=== PATIENT | female | born 2000 | race Native Hawaiian/Other Pacific Islander ===

== ENCOUNTER 2018-12-17 20:30 | Inpatient (IN) | payer OTHER ==
[2018-12-17] VITALS (19 sets, daily range): BP systolic 89–129; BP diastolic 51–86
[~2018-12-17] VITALS: Ht 175.3 cm; Wt 90.7 kg
[2018-12-17] MEDS ORDERED: PRENTAB9 PO (20:49)
[2018-12-17] MEDS ORDERED: PENICILLIN G POTASSIUM 5 MU VIAL As Ordered ONE (21:25)
[2018-12-17] MEDS ORDERED: LACTATED RINGER'S 1000 ML IV STA (21:44)
[2018-12-17] MEDS ORDERED: LR 1,000 ML IV SCH (21:44)
[2018-12-17] MEDS ORDERED: PENICILLIN G POTASSIUM IV 5 MU in D5W MINI-BAG PLUS 100 ML IV STA (21:44)
[2018-12-17 21:47] LABS: HEMATOCRIT 34.2 % (36.0-47.0); HEMOGLOBIN 10.6 g/dl (12.0-15.5); MEAN CORPUSCULAR HEMOGLOBIN 23.8 pg (27.0-33.0); MEAN CORPUSCULAR VOLUME 76.7 fl (80.0-96.0); PLATELET COUNT, AUTOMATED 237 10^3/uL (150-450); RED BLOOD COUNT 4.46 10^6/uL (4.00-5.40); WHITE BLOOD COUNT 16.4 10^3/uL (4.0-10.0)
[2018-12-17] MEDS ORDERED: FENTANYL 2MCG/ML ROPIVACAINE 0.2% IN 0.9% NACL 100ML IVBAG As Ordered ONE (22:06)
--- NOTE | 2018-12-17 22:17 | HPEPDOC ---
Obstetrical History & Physical General Date of Admission Dec 17, 2018 at 21:06 History of Present Illness 18 y/o at 39+1 with painful reg ctx's. No LOF/VB. Pos FM. Preg uncomplicated per pt although there is no chart to review. Last note reviewed by MAJ Jorgensen on FEB and it said uncomplicated preg. I was in the clinic and looked everywhere for the chart, but only had time to look at labs and US on the EMR before I was called to another delivery. Chief Complaint: Contractions, term Care Care: Limited Care (presented at 15-16 wks) Dating Final EDC by: 2nd trimester (US) (17 wk scan determined NELSY) Past Medical History Past Obstetrical History : Past Obstetrical History: [employer] History: No pertinent history Past Medical History Medical History denies Surgical History: Denies/None Family History Significant Family History: No pertinent family hx Social History Marital Status: Single (FOB not involved) Psychosocial History: No pertinent psych hx * Smoker: non-smoker Alcohol: Denies Drugs: denies Abuse Violence Screening Have you been hit/kicked/slapp: No Have you been sexually assault: No Allergies Coded Allergies: No Known Allergies (Unverified , 12/17/18) Medications Scheduled Multivitamins/ ( 27-0.8 mg) 1 Tab Tab, 1 TAB PO DAILY Physical Examination Physical Examination GENERAL: Alert and oriented times three. ABDOMEN: Gravid and non-tender to touch. FETUS: Is vertex (VTX) by sterile vaginal examination (SVE) per RN, check at ~2100 was 4/60/-2 EXTREMITIES: No edema. Laboratory Data 24H LABS Laboratory Tests 2 12/17/18 21:20: Nucleated Red Blood Cells % (auto) 0.0 CBC/BMP Laboratory Tests 12/17/18 21:20 Red Blood Count 4.46, Mean Corpuscular Volume 76.7 L, Mean Corpuscular Hemoglobin 23.8 L, Mean Corpuscular Hemoglobin Concent 31.0 L, Red Cell Distribution Width 14.5 Urine Culture: Contaminated Pertinent Laboratoy Data RBC Antibody Screen: Negative HIV: Negative Hepatitis B: Negative Hepatitis C: Unknown Rapid Plasma Reagin: Nonreactive Rubella: Immune Varicella: Immune Chlamydia/Gonorrhea: Negative Group B Streptococcus: Positive Quad Screen Test: Unknown Cystic Fibrosis: Unknown Glucose Tolerance Test: 154 (nl 3 hr GTT) Anatomy Ultrasound Placenta Location: Posterior Normal Anatomy: Yes Placenta Previa: No Assessment Variability: Moderate Accelerations: Positive Decelerations: Variable (intermittent) Heart Patterns: Tachycardia (intermittent) Tocometer Contractions: Yes Frequency: regular Duration: greater than 60 seconds Strength: palpated as strong Assessment/Plan Assessment Active labor. Desires an epidural. Plan Admit and orient. Press Loader and consent. Diet: clears Group B Streptococcus (GBS) pos, PCN 5/2.5 Labs and intravenous (IV) per unit protocol Lactated Ringers (LR): Bolus 1000 mL, then at 125 mL/hr. Anticipate normal spontaneous delivery () C-S as appropriate. Unknown TDAP and Flu shot status due to no chart Standard labs, I have all of them except blood type, the T&S is pending Recheck after second dose PCN is in, ~0200 Sessions SESSIONS,ROZINA Gaming MD Dec 17, 2018 22:17
[2018-12-17] MEDS ORDERED: EPIDURAL COMMENT XX SCH (23:00)
[2018-12-17] MEDS ORDERED: ePHEDrine SULFATE 25 MG/5 ML(5MG/ML) SYRINGE IV PRN (23:00)
[2018-12-17] MEDS ORDERED: FENTANYL/ROPIVACAINE/NACL BAG 100 ML EPIDURAL SCH (23:00)
[2018-12-17] MEDS ORDERED: NALOXONE INJ 0.4 MG/1 ML VIAL (J2310) IV PRN (23:00)
[2018-12-17] MEDS ORDERED: EPIDURAL/PCA KEYS XX PRN (23:00)
[2018-12-17] MEDS ORDERED: diphenhydrAMINE INJ 50MG/ML VIAL (J1200) IV PRN (23:00)
[2018-12-17] MEDS ORDERED: LACTATED RINGER'S 1000 ML IV PRN (23:00)
[2018-12-17] MEDS ORDERED: REFRIGERATOR IV KEYS XX PRN (23:00)
[2018-12-17] MEDS ORDERED: ONDANSETRON 4MG/2ML VIAL (J2405) IV PRN (23:00)
[2018-12-18] MEDS ORDERED: PENICILLIN G POTASSIUM IV 2.5 MU in APPROPRIATE DILUENT 1 EA IV SCH (01:45)
[2018-12-18] MEDS ORDERED: OXYTOCIN 30 UNITS IN 0.9% NaCl 500ML IV BAG (J2590) As Ordered ONE (01:51)
[2018-12-18] MEDS ORDERED: miSOPROStol 200 MCG TAB (S0191) PR STA (02:07)
[2018-12-18] MEDS ORDERED: AMPICILLIN SOD/SULBACTAM SOD 3 GM in D5W MINI-BAG PLUS 100 ML IV SCH ×2 (02:15→03:00)
[2018-12-18 02:21] LABS: CORD GAS ABE V -9.7; CORD GAS O2 SAT V 80.5 %; CORD GAS PCO2 V 52.2 mmHg; CORD GAS PH V 7.178 UNITS; CORD GAS PO2 V 46.3 mmHg; CORD GAS SBC V 16.5 MEQ/L; CORD GAS TCO2 V 20.6 MEQ/L
[2018-12-18 02:26] LABS: CORD GAS ABE A -11.9; CORD GAS HCO3 A 22.3 MEQ/L; CORD GAS O2 SAT A 20.6 %; CORD GAS PCO2 A 101.7 mmHg; CORD GAS PO2 A 16.6 mmHg; CORD GAS SBC A 13.8 MEQ/L; CORD GAS TCO2 A 25.4 MEQ/L
[2018-12-18 02:30] LABS: CORD GAS PH A 6.958 UNITS
[2018-12-18] MEDS ORDERED: OXYTOCIN DRIP 30 UNITS in APPROPRIATE DILUENT 1 EA IV SCH (02:36)
[2018-12-18] MEDS ORDERED: DIBUCAINE 1% OINTMENT 30GM TOP PRN (02:45)
[2018-12-18] MEDS ORDERED: METOCLOPRAMIDE INJ 10MG/2ML VIAL (J2765) IV PRN (02:45)
[2018-12-18] MEDS ORDERED: IBUPROFEN 800 MG TAB PO PRN (02:45)
[2018-12-18] MEDS ORDERED: ACETAMINOPHEN TAB 650MG DOSE (2X325MG) PO PRN (02:45)
[2018-12-18] MEDS ORDERED: MEASLES,MUMPS,RUBELLA VACCINE INJ (MMR-II) (90707) SC SCH (02:45)
[2018-12-18] MEDS ORDERED: RHOGAM 300 MCG (1500 IU) INJ (J2790) IM SCH (02:45)
--- NOTE | 2018-12-18 02:59 | DNPDOC ---
[facility] Delivery Note Delivery Note DATE OF DELIVERY: [id number] PREDELIVERY DIAGNOSIS: 39 1/7 weeks gestation and labor. POST DELIVERY DIAGNOSIS: Delivered. PROCEDURE: Outlet vacuum CPC: Dr Sims ANESTHESIA: epidural ESTIMATED BLOOD LOSS: 500 mL. FINDINGS: 8 pound 5 ounce male , Score 5/9, nuchal cord times 1, loose, compound right hand DELIVERY SUMMARY: Called to room emergently with SBAR of prolonged decel and SROM with RN cx check. Baby at +4/JOSH. Pushed well with periods of heart rate returned to normal, but more in the 60-90's then otherwise. Verbal consent for epis/vacuum delivery with quick disc of larger lacs to tissue and possible bruising/lacs to head. NICU doc called, on his way. ML epis performed w/o difficulty at beginning of push. Still not able to deliver with that set of ctx's. Kiwi vacuum placed mid sagitally 1-2 cm from post fontanelle and with next set of pushes/next ctx, del'd the head with one pull and no pop-offs. Vac removed easily and right ant shoulder del'd, compound right arm noted at this time. No delay of post shoulder. Cord C/C and baby to warmer, resuscitation team present, see their note. Cord gasses obtained from a very dried up and not engorged cord. With placenta delivery, second draw labelled as arterial was actually venous and there was about 5 min from first venous draw to second draw, questionable reliability/clinical value. First venous gas with pH 7.18 and BE - 9.7. Placenta with long trailing membranes and possible extra lobe?, examined to the fundus (tolerated amazingly well) and each of several passes had tissue/membranes present. Done until all confirmed removed, pitocin going 999, fundus firm. ML epis examined, no extension other than on the skin down to the anal verge. Rectal capsule and sphincter intact, confirmed with eventual rectal exam. Essential 2nd degr lac repaired with continuous 3-0 vicryl in standard fashion. Good cosmesis/hemostasis. 1000 mcg cytotec placed rectally for prophylaxis due to the retained placental fragments and EBL 500. Will receive 3 doses of Unasyn 3 gm IV for prophylaxis. Sessions MD SIMS,ROZINA Gaming MD Dec 18, 2018 02:59
[2018-12-18 07:14] VITALS: BP 97/58
[2018-12-18] MEDS: PRENATAL VITAMINS CHEWABLE TABLET PO SCH (08:43)
[2018-12-18] MEDS: DOCUSATE SODIUM 100 MG CAP PO SCH ×2 (08:43→21:38)
[2018-12-18] MEDS: AMPICILLIN SOD/SULBACTAM SOD 3 GM in D5W MINI-BAG PLUS 100 ML IV SCH ×3 (12:07→23:50)
--- NOTE | 2018-12-18 17:03 | IPN ---
DATE: 12/18/2018 This lady and her requested circumcision of their male . After discussing risks and benefits of circumcision, the medical nonmedical indications, penile block, and aftercare, expressed understanding penile, block aftercare, and bleeding. Signed and witnessed consent form. All questions were answered. A 20-minute discussion. We await clearance by the manager process.
[2018-12-18 18:00] VITALS: BP 110/66
[2018-12-19 05:48] VITALS: BP 112/64
--- NOTE | 2018-12-19 05:49 | NUR ---
PostpartumProgress Note Date of Service The patient was seen on 12/19/18. NOTE VAVD PPD1 Dorita reports feeling well, pain controlled with prescribed meds. Baby bonding and formula well. No heavy VB. Lochia slowing. Ambulatory. Tolerating PO without issues. Voiding spont. No questions. VSS/AF NAD A&O RRR CTAB Ut at U-1, firm Locia scant rubra; perineum well approximated and healing LE no C/C/E CBC pending this am in [facility]. A/P: 18 y/o G1 now P1001. Doing well. Bonding appropriately. Routine care today. CBC pending in [facility] (s/p 500ml EBL). I anticipate dc home tomorrow.
[2018-12-19 06:50] LABS: HEMATOCRIT 26.9 % (36.0-47.0); MEAN CORPUSCULAR HEMOGLOBIN 24.1 pg (27.0-33.0); MEAN CORPUSCULAR HGB CONC 30.9 g/dl (32.0-36.5); MEAN CORPUSCULAR VOLUME 78.2 fl (80.0-96.0); PLATELET COUNT, AUTOMATED 180 10^3/uL (150-450); RED BLOOD COUNT 3.44 10^6/uL (4.00-5.40); WHITE BLOOD COUNT 14.9 10^3/uL (4.0-10.0)
[2018-12-19 06:54] LABS: HEMOGLOBIN 8.3 g/dl (12.0-15.5)
[2018-12-19] MEDS: PRENATAL VITAMINS CHEWABLE TABLET PO SCH (08:33)
[2018-12-19] MEDS: DOCUSATE SODIUM 100 MG CAP PO SCH ×2 (08:33→21:21)
[2018-12-19] MEDS ORDERED: ADACEL/BOOSTRIX VACCINE (DIPHTH/PERTUSS/ACELL/TETANUS)0.5ML SYR (90715) IM PRN (14:30)
[2018-12-19 18:00] VITALS: BP 113/65
[2018-12-20 06:00] VITALS: BP 105/68
--- NOTE | 2018-12-20 07:53 | IPNPDOC ---
Progress Note Date of Service: Dec 20, 2018 Day#: 2 Progress Note PPD 2 SUBJECT: Saira is a 18yo [id number] s/p uncomplicated VAVD on 12/18/18 after presenting in active labor, doing well day # 2. She had a midline episiotomy without extension. She has been ambulating, voiding spontaneously without issue and tolerating regular diet. Bottle feeding without issue. Lochia is like a normal period. No f/c/n/v/CP/SOB. OBJECTIVE: VITAL SIGNS: Within normal limits, afebrile. Alert and oriented times three. Abdomen: Fundus firm at U-2. Soft, NTTP. Extremities: no pain with palpation of calves ASSESSMENT: Saira is a 18yo [id number] s/p uncomplicated VAVD on 12/18/18 after presenting in active labor, doing well day # 2. She had a midline episiotomy without extension. Vitals within normal limits, afebrile, hemodynamically stable with no evidence of infection. PLAN: 1. Discharge to home today. 2. Tylenol and Motrin for pain. 3. Undecided regarding contraception 4. Routine PP visit in 6 weeks in clinic. 5. Discussed return precautions at length. Dr. Michaela Landa MD VS, I&O, 24H, Fishbone Vital Signs/I&O Vital Signs Date Time Temp Pulse Resp B/P (MAP) Pulse Ox O2 Delivery O2 Flow Rate FiO2 12/20/18 06:00 98.1 85 18 105/68 (80) 98 Michaela Landa MD Dec 20, 2018 07:53
[2018-12-20] MEDS ORDERED: IBUP-1114 PO (08:11)
[2018-12-20] MEDS ORDERED: MAPA500T2 PO (08:11)
[2018-12-20] MEDS: PRENATAL VITAMINS CHEWABLE TABLET PO SCH (08:12)
[2018-12-20] MEDS: DOCUSATE SODIUM 100 MG CAP PO SCH (08:12)
== END 2018-12-20 13:15 | disposition home or self-care (01) | DRG 807 ==
LOC: M LDO 20:30 → M LDI 21:06 → M OBS 12-18 14:07
PROVIDERS: ADMIT Obstetrics & Gynecology; ATTEND Obstetrics & Gynecology
PROC: 10D07Z6 Extraction of Products of Conception, Vacuum, Via Natural or Artificial Opening (ICD-10-PCS; principal; 2018-12-18)
PROC: 0W8NXZZ Division of Female Perineum, External Approach (ICD-10-PCS; 2018-12-18)
DX: O32.6XX0 Maternal care for compound presentation, not applicable or unspecified (principal); Z37.0 Single live birth; Z3A.39 39 weeks gestation of pregnancy; O69.82X0 Labor and delivery complicated by other cord entanglement, without compression, not applicable or unspecified; O76 Abnormality in fetal heart rate and rhythm complicating labor and delivery